=== PATIENT | male | born 1990 | race Caucasian/White ===

== ENCOUNTER 2017-02-18 08:44 | Emergency (ER) | payer SELFPAY ==
[~2017-02-18] VITALS: Ht 157.5 cm; Wt 68.0 kg
[2017-02-18 08:49] VITALS: BP 126/77; PULSE 101; RESP 17; TEMP 97.8
[2017-02-18] MEDS ORDERED: SODIUM CHLOR 0.9% 1000 ML INJ 1,000 ML IV ONE (08:50)
[2017-02-18 08:57] VITALS: RESP 17; O2SAT 97
--- NOTE | 2017-02-18 08:57 | PD ---
HPI Chief Complaint: seizure Time Seen by Provider: 08:50 Travel History International Travel<30 days: No Contact w/Intl Traveler<30days: No Traveled to known affect area: No History of Present Illness HPI 26-year-old male patient with history of seizures, currently on lamotrigine, presents to the ER today because of a seizure according to girlfriend, with post ictal according to EMS and is now. In the ER, more oriented, and is vomiting, vomiting of coffee ground substance. He states that he has not been feeling well since this morning. He did not start vomiting until after the seizure. He denies any fevers or other issues. He does not know any sick contacts. Modifying Factors: None Associated Signs & Symptoms: Seizure, nausea and vomiting Risk Factors: History of seizures PFSH Social History Tobacco Use: No Allergies-Medications (Allergen,Severity, Reaction): Coded Allergies: No Known Allergies (Unverified , 02/18/17) Reported Meds & Prescriptions Reported Meds & Active Scripts Active Reported Lamictal (Lamotrigine) 200 Mg Tab 200 Mg PO BID Review of Systems Except as stated in HPI: all other systems reviewed are Neg Physical Exam Narrative GENERAL: Well-developed young male patient currently in moderate distress, coffee-ground emesis. Awake and oriented 3. SKIN: Focused skin assessment warm/dry. HEAD: Atraumatic. Normocephalic. EYES: Pupils equal and round. No scleral icterus. No injection or drainage. ENT: No nasal bleeding or discharge. Mucous membranes pink and moist. NECK: Trachea midline. No JVD. CARDIOVASCULAR: Regular rate and rhythm. No murmur appreciated. RESPIRATORY: No accessory muscle use. Clear to auscultation. Breath sounds equal bilaterally. GASTROINTESTINAL: Abdomen soft, non-tender, nondistended. Hepatic and splenic margins not palpable. MUSCULOSKELETAL: No obvious deformities. No clubbing. No cyanosis. No edema. NEUROLOGICAL: Awake and alert. No obvious cranial nerve deficits. Motor grossly within normal limits. Normal speech. PSYCHIATRIC: Appropriate mood and affect; insight and judgment normal. Data Data Last Documented VS Vital Signs Date Time Temp Pulse Resp B/P (MAP) Pulse Ox O2 Delivery O2 Flow Rate FiO2 02/18/17 09:51 97.8 86 17 133/76 (95) 100 Room Air Orders Orders Complete Blood Count With Diff (02/18/17 08:50) Alcohol (Ethanol) (02/18/17 08:50) Drug Screen, Random Urine (02/18/17 08:50) Electrocardiogram (02/18/17 ) Ct Brain W/O Iv Contrast(Rout) (02/18/17 ) Blood Glucose (02/18/17 08:50) Ecg Monitoring (02/18/17 08:50) Iv Access Insert/Monitor (02/18/17 08:50) Oximetry (02/18/17 08:50) Comprehensive Metabolic Panel (02/18/17 08:50) Sodium Chlor 0.9% 1000 Ml Inj (Ns 1000 M (02/18/17 08:50) Sodium Chloride 0.9% Flush (Ns Flush) (02/18/17 09:00) Lipase (02/18/17 08:50) Pantoprazole Inj (Protonix Inj) (02/18/17 09:00) Ondansetron Inj (Zofran Inj) (02/18/17 09:00) Morphine Inj (Morphine Inj) (02/18/17 10:00) Acetaminophen (Tylenol) (02/18/17 10:00) Labs Laboratory Tests Test 02/18/17 09:00 White Blood Count 8.8 TH/MM3 Red Blood Count 5.38 MIL/MM3 Hemoglobin 15.4 GM/DL Hematocrit 46.9 % Mean Corpuscular Volume 87.2 FL Mean Corpuscular Hemoglobin 28.7 PG Mean Corpuscular Hemoglobin Concent 32.9 % Red Cell Distribution Width 12.9 % Platelet Count 264 TH/MM3 Mean Platelet Volume 7.5 FL Neutrophils (%) (Auto) 62.0 % Lymphocytes (%) (Auto) 24.1 % Monocytes (%) (Auto) 8.1 % Eosinophils (%) (Auto) 5.0 % Basophils (%) (Auto) 0.8 % Neutrophils # (Auto) 5.4 TH/MM3 Lymphocytes # (Auto) 2.1 TH/MM3 Monocytes # (Auto) 0.7 TH/MM3 Eosinophils # (Auto) 0.4 TH/MM3 Basophils # (Auto) 0.1 TH/MM3 CBC Comment DIFF FINAL Differential Comment Blood Urea Nitrogen 10 MG/DL Creatinine 1.34 MG/DL Random Glucose 131 MG/DL Total Protein 7.3 GM/DL Albumin 4.2 GM/DL Calcium Level 8.8 MG/DL Alkaline Phosphatase 82 U/L Aspartate Amino Transf (AST/SGOT) 18 U/L Alanine Aminotransferase (ALT/SGPT) 28 U/L Total Bilirubin 0.3 MG/DL Sodium Level 133 MEQ/L Potassium Level 3.8 MEQ/L Chloride Level 102 MEQ/L Carbon Dioxide Level 12.1 MEQ/L Anion Gap 19 MEQ/L Estimat Glomerular Filtration Rate 63 ML/MIN Lipase 160 U/L Urine Opiates Screen NEG Urine Barbiturates Screen NEG Urine Amphetamines Screen NEG Urine Benzodiazepines Screen NEG Urine Cocaine Screen NEG Urine Cannabinoids Screen POS Ethyl Alcohol Level LESS THAN 3 MG/DL MDM Medical Decision Making Medical Screen Exam Complete: Yes Emergency Medical Condition: Yes Medical Record Reviewed: Yes Interpretation(s) Laboratory Tests Test 02/18/17 09:00 Monocytes (%) (Auto) 8.1 % (0.0-8.0) Eosinophils (%) (Auto) 5.0 % (0.0-4.0) Creatinine 1.34 MG/DL (0.60-1.30) Random Glucose 131 MG/DL (74-106) Sodium Level 133 MEQ/L (136-145) Carbon Dioxide Level 12.1 MEQ/L (21.0-32.0) Anion Gap 19 MEQ/L (5-15) Estimat Glomerular Filtration Rate 63 ML/MIN (>89) Urine Cannabinoids Screen POS (NEG) Last [address] 02/18/17 0000 Signed Impressions: Service Date/Time: February 09:35 - CONCLUSION: No acute disease. Dragan Patel MD Differential Diagnosis Seizure/vomiting: Gastroenteritis versus pancreatitis versus metabolic issues versus acute intracranial processes versus breakthrough seizures Narrative Course Patient is more awake in the ER. He was given Tylenol for his headache. Lab work did not indicate significant metabolic issues. Abdomen is benign and I do not suspect an acute intra-abdominal process. His lab work did not indicate any significant pancreatitis. His CAT scan of the brain was negative for any signs of acute intracranial processes. On reevaluation at 10:20 AM, patient is awake and alert, and at this point, reports feeling better. He has had previous episodes of vomiting as well with his seizures. At this point, my plan would be to release him with follow-up to primary care physician. Continue taking seizure medications as prescribed. The plan was discussed with him and he states understanding. Diagnosis Primary Impression: Breakthrough seizure Additional Impression: Gastritis Med/Other Pt SpecificInfo: Prescription(s) given Scripts Ondansetron Odt (Zofran Odt) 4 Mg Tab 4 MG SL Q6HR Y for Nausea/Vomiting, #7 TAB 0 Refills Prov: Louis Stanford MD 02/18/17 Ranitidine (Zantac) 150 Mg Tab 150 MG PO DAILY for Reduce Stomach Acid, #14 TAB 0 Refills Prov: Louis Stanford MD 02/18/17 Disposition: 01 DISCHARGE HOME Condition: Stable Louis Stanford MD Feb 18, 2017 08:57
[2017-02-18] MEDS ORDERED: PANTOPRAZOLE SODIUM 40 MG VIAL IV PUSH ONE (09:00)
[2017-02-18] MEDS ORDERED: SODIUM CHLORIDE 0.9% FLUSH 10 ML FLUSH IVF PRN (09:00)
[2017-02-18] MEDS ORDERED: ONDANSETRON HCL 4 MG/2 ML VIAL IV PUSH ONE (09:00)
[2017-02-18] MEDS ORDERED: LAMI200T PO (09:15)
[2017-02-18 09:29] LABS: AUTOMATED NEUTROPHIL # 5.4 TH/MM3 (1.8-7.7); BASOPHIL # 0.1 TH/MM3 (0-0.2); BASOPHIL % 0.8 % (0.0-2.0); EOSINOPHIL # 0.4 TH/MM3 (0-0.4); HEMATOCRIT 46.9 % (39.0-51.0); HEMO FLAGS DIFF FINAL; LYMPH % 24.1 % (9.0-44.0); LYMPHOCYTE # 2.1 TH/MM3 (1.0-4.8); MEAN CELL VOLUME 87.2 FL (80.0-100.0); MEAN CORPUSCULAR HEMOGLOBIN 28.7 PG (27.0-34.0); MEAN CORPUSCULAR HGB CONC 32.9 % (32.0-36.0); MONO % 8.1 % (0.0-8.0); PLATELET COUNT 264 TH/MM3 (150-450); RED BLOOD COUNT 5.38 MIL/MM3 (4.50-5.90); RED CELL DISTRIBUTION WIDTH 12.9 % (11.6-17.2); WHITE BLOOD COUNT 8.8 TH/MM3 (4.0-11.0)
[2017-02-18] MEDS ORDERED: MORPHINE SULFATE 2 MG/ML INJ IV PUSH ONE (09:30)
--- NOTE | 2017-02-18 09:44 | RADRPT ---
EXAM DATE/TIME: 02/18/2017 09:35 [facility] COMPARISON: No previous studies available for comparison. INDICATIONS : Seizure. RADIATION DOSE: 37.21 CTDIvol (mGy) MEDICAL HISTORY : Seizures. SURGICAL HISTORY : None. ENCOUNTER: Initial ACUITY: 1 day PAIN SCALE: 0/10 LOCATION: cranial TECHNIQUE: Multiple contiguous axial images were obtained of the head. Using automated exposure control and adj ustment of the mA and/or kV according to patient size, radiation dose was kept as low as reasonably a chievable to obtain optimal diagnostic quality images. DICOM format image data is available electro nically for review and comparison. FINDINGS: CEREBRUM: The ventricles are normal for age. No evidence of midline shift, mass lesion, hemorrhage or acute in farction. No extra-axial fluid collections are seen. POSTERIOR FOSSA: The cerebellum and brainstem are intact. The 4th ventricle is midline. The cerebellopontine angle i s unremarkable. EXTRACRANIAL: The visualized portion of the orbits is intact. SKULL: The calvaria is intact. No evidence of skull fracture. CONCLUSION: No acute disease. Dragan Patel MD on February 18, 2017 at 9:42 Board Certified Radiologist. This report was verified electronically.
[2017-02-18 09:51] VITALS: BP 133/76; PULSE 86; RESP 17; TEMP 97.8; O2SAT 100
[2017-02-18 09:51] LABS: ALT (GPT) 28 U/L (12-78); ANION GAP 19 MEQ/L (5-15); AST (GOT) 18 U/L (15-37); BICARBONATE 12.1 MEQ/L (21.0-32.0); BLOOD UREA NITROGEN 10 MG/DL (7-18); CHLORIDE 102 MEQ/L (98-107); GLOMERULAR FILTRATION RATE 63 ML/MIN (>89); POTASSIUM 3.8 MEQ/L (3.5-5.1); SODIUM (NA) 133 MEQ/L (136-145)
[2017-02-18 09:54] VITALS: RESP 16
[2017-02-18 09:55] LABS: ALCOHOL LESS THAN 3 MG/DL (0-5)
[2017-02-18 09:56] LABS: ALKALINE PHOSPHATASE 82 U/L (45-117); TOTAL BILIRUBIN ADULT 0.3 MG/DL (0.2-1.0)
[2017-02-18] MEDS ORDERED: MORPHINE SULFATE 4 MG/ML INJ IV PUSH ONE (10:00)
[2017-02-18] MEDS ORDERED: ACETAMINOPHEN 325 MG TAB PO ONE (10:00)
[2017-02-18] MEDS ORDERED: ZOFR4TAB3 SL (10:28)
[2017-02-18] MEDS ORDERED: ZANT150T2 PO (10:28)
[2017-02-18 10:34] VITALS: BP 128/77; TEMP 97.9
--- NOTE | 2017-02-18 18:09 | EKG ---
Date Performed: 02/18/2017 Time Performed: 09:08:43 PTAGE: 26 years EKG: Sinus rhythm BORDERLINE ECG NO PREVIOUS TRACING DOCTOR: Osmar Maxwell Interpretating Date/Time 02/18/2017 18:08:00
== END 2017-02-18 10:35 | disposition home or self-care (01) ==
LOC: NEPE 08:44
DX: G40.89 Other seizures (principal); K29.70 Gastritis, unspecified, without bleeding; R94.31 Abnormal electrocardiogram [ECG] [EKG]
CPT/HCPCS: 70450; 80053; 80307; 83690; 85025; 93005; 96361; 96374; 96375; 99285; C9113; J2270; J2405; J7030